=== PATIENT | female | born 1980 | race Caucasian/White ===

== ENCOUNTER 2016-10-26 14:14 | Emergency (ER) | payer MEDICARE, OTHER, MEDICAID ==
[~2016-10-26] VITALS: Ht 160 cm; Wt 130.0 kg
[~2016-10-26 14:14] MED LIST: ALBU0.08 NEB; ASPI81TA81 PO; ATOR40TA16 PO; CALC0.25 PO; CALC1TAB26 PO; CHLO5CAP37 PO; DICY20TA10 PO; DIPH2.5T60 PO; FERR325T PO; FURO1TAB60 PO; HYDR5TAB64 PO; IPRAAER INH; JUNE1.5T PO; LACTTAB8 PO; LIOT5TAB3 PO; LYRI50CA PO; MELA5CAP2 PO; METR500T10 PO; MULT1CHW70 PO; OMEP20TA PO; PERC5TAB12 PO; POTA-163 PO; SODI650T PO; SYMB160A INH; TIRO137C PO; TRAM50TA PO; ULOR80TA2 PO; VENTAER INH; VITA500030 CHEW; [UNRECOGNIZED DRUG - CODE] SQ
[2016-10-26 14:17] VITALS: BP 162/81; PULSE 97; RESP 24; TEMP 98.1; O2SAT 100
--- NOTE | 2016-10-26 14:24 | PD ---
Physical Exam Time Seen by Provider: 14:21 Narrative 36 y/o female presents for evaluation of a facial rash which started today. Concerned about allergic reaction to flagyl which started 2 days ago to treat bacterial vaginosis. Now concerned she may have a UTI as well. Vital signs reviewed. Seen at triage desk. Awaiting bed placement. Data Data Last Documented VS Vital Signs Date Time Temp Pulse Resp B/P Pulse Ox O2 Delivery O2 Flow Rate FiO2 10/26/16 14:17 98.1 97 24 162/81 100 Room Air [facility] Medical Record Reviewed: Yes Supervised Visit with ANUP: Govind Montejo October 26, 2016 14:24
[2016-10-26] MEDS ORDERED: CLIN1CAP6 PO (14:46)
--- NOTE | 2016-10-26 14:48 | PD ---
HPI Chief Complaint: Allergic/Adverse Reaction Time Seen by Provider: 14:43 Travel History International Travel<30 days: No Contact w/Intl Traveler<30days: No Traveled to known affect area: No History of Present Illness HPI 36-year-old female presents to the emergency Department with complaint of a facial rash that she was told she had today. 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 Patient's caretakers at the bedside and reports seeing facial flushing to bilateral cheeks which subsided prior to arrival to the ER. She started taking Flagyl 3 days ago and thinks she was having allergic reaction to the medication. She did call her primary care provider and her mom and they both told her come to the emergency department. Denies airway edema, stridor, wheezing, cough. Denies shortness of breath or difficulty breathing. Denies fever, vomiting. Allergies to Norvasc, sodium chloride, Vasotec. Has no other medical complaints. No other modifying factors or associated signs and symptoms. PFSH Past Medical History Asthma: Yes Autoimmune Disease: No Anxiety: Yes (Separation anxiety) Cancer: No Cardiovascular Problems: Yes (Heart murmur) Diabetes: Yes Endocrine: Yes Gastrointestinal Disorders: Yes (HX ULCER, RECTAL BLEEDING, REFLUX) GERD: Yes Genitourinary: Yes Hepatitis: No Hiatal Hernia: No Hypertension: Yes Immune Disorder: No Musculoskeletal: Yes Neurologic: No Psychiatric: Yes (auditory hallucination times 1 episode) Reproductive: No Respiratory: Yes Thyroid Disease: Yes ?: Not Past Surgical History Abdominal Surgery: Yes (reji Sy, ) Appendectomy: Yes Cholecystectomy: Yes Eye Surgery: Yes (eye removal,) Oral Surgery: Yes (T&A) Tonsillectomy: Yes Other Surgery: Yes (EXTRA FINGERS AND TOES REMOVED AT ) Social History Alcohol Use: No Tobacco Use: No Substance Use: No Allergies-Medications (Allergen,Severity, Reaction): Coded Allergies: Norvasc (Verified Allergy, Severe, SWELLING, 10/26/16) Sodium Chloride (Verified Allergy, Severe, EDEMA, 10/26/16) "CANT HAVE LARGE AMOUNTS OF IT" Vasotec (Verified Allergy, Severe, SWELLING, 10/26/16) Reported Meds & Prescriptions Reported Meds & Active Scripts Active Clindamycin (Clindamycin HCl) 300 Mg Cap 300 Mg PO BID 7 Days Metronidazole 500 Mg Tab 500 Mg PO BID Calcitriol 0.25 Mcg Cap 0.25 Mcg PO DAILY Sodium Bicarbonate 650 Mg Tab 650 Mg PO BIDPC Tramadol (Tramadol HCl) 50 Mg Tab 50 Mg PO HS PRN Liothyronine (Liothyronine Sodium) 5 Mcg Tab 10 Mcg PO DAILY Uloric (Febuxostat) 80 Mg Tab 1 Tab PO HS Atorvastatin (Atorvastatin Calcium) 40 Mg Tab 40 Mg PO HS Potassium Chloride ER (Potassium Chloride) 20 Meq Tab 20 Meq PO DAILY Dicyclomine (Dicyclomine HCl) 20 Mg Tab 20 Mg PO TID PRN Omeprazole 20 Mg Tab 20 Mg PO BID Lasix (Furosemide) 40 Mg Tab 40 Mg PO BID Ventolin Hfa 18 GM Inh (Albuterol Sulfate) 90 Mcg/Act Aer 2 Puff INH Q4-6H PRN Albuterol Neb (Albuterol Sulfate) 2.5 Mg/3 Ml Neb 2.5 Mg NEB Q4HR NEB PRN Combivent Respimat Inh (Ipratropium-Albuterol Inh) 20-100 Intermediate/Act Aero 2 Puff INH BID Lyrica (Pregabalin) 50 Mg Cap 50 Mg PO DAILY Reported Procrit Inj (Epoetin Cruzito) Unknown Strength Inj Unknown Dose SQ 3XWEEK Hydrocortisone 5 Mg Tab 5 Mg PO DIRECTED 10 mg AM, 5 mg noon, 2.5 mg dinner Percocet (Oxycodone-Acetaminophen) 5-325 mg Tab 1 Tab PO Q4H PRN Chlordiazepoxide-Clidinium 5-2.5 Mg Cap 1 Cap PO TID Tirosint (Levothyroxine Sodium) 137 Mcg Cap 137 Mcg PO DAILY Diphenatol 2.5-0.025 mg (Diphenoxylate W/ Atropine) 1 Tab Tab 1 Tab PO DAILY PRN Junel Fe 1.5/30 (Norethindrone-Ethinyl Estradiol-Fe) 1.5-30 Mg-Mcg Tab 1 Tab PO DAILY Symbicort Inh (Budesonide/Formoterol Fumarate) 160-4.5 Mcg/Act Aero 2 Puff INH TID Melatonin 5 Mg Cap 1 Cap PO HS Multivitamin Adult (Multiple Vitamins W/ Minerals) 1 Chw Chw 1 Tab PO DAILY Vitamin D3 (Cholecalciferol) 5,000 Unit Chew 5,000 Units CHEW DAILY Calcium 600/Vitamin D3 (Calcium Carbonate-Cholecalciferol) 600-800 Mg-Unit Tab 1 Tab PO DAILY Lactobacillus Acidophilus 1 Tab Tab 1 Tab PO TIDAC Ferrous Sulfate 325 Mg Tab 325 Mg PO TID Aspir-81 (Aspirin) 81 Mg Tabdr 1 Tab PO DAILY Review of Systems Except as stated in HPI: all other systems reviewed are Neg Physical Exam Narrative GENERAL: Well-nourished, well-developed female patient, in no acute distress SKIN: Warm and dry. No facial rash noted. HEAD: Atraumatic. Normocephalic. EYES: Bilateral eye prosthetics. ENT: Mucosa pink and moist. No erythema or exudates. No uvular edema. No uvular , palatal, or tonsillar deviation. Airway patent. EARS: Bilateral pinnae and external canals appear within normal limits. Bilateral tympanic membranes without erythema, dullness or perforation. NECK: Trachea midline. No lymphadenopathy. CARDIOVASCULAR: Regular rate and rhythm. No murmur appreciated. RESPIRATORY: No accessory muscle use. Clear to auscultation. Breath sounds equal bilaterally. GASTROINTESTINAL: Abdomen soft, non-tender, nondistended. Hepatic and splenic margins not palpable. Bowel sounds are active 4 quadrants. MUSCULOSKELETAL: No obvious deformities. No clubbing. No cyanosis. No edema. NEUROLOGICAL: Awake and alert. Oriented 3. No obvious cranial nerve deficits. Motor grossly within normal limits. Normal speech. PSYCHIATRIC: Appropriate mood and affect; insight and judgment normal. Data Data Last Documented VS Vital Signs Date Time Temp Pulse Resp B/P Pulse Ox O2 Delivery O2 Flow Rate FiO2 10/26/16 14:17 98.1 97 24 162/81 100 Room Air MDM Medical Decision Making Medical Screen Exam Complete: Yes Emergency Medical Condition: Yes Medical Record Reviewed: Yes Differential Diagnosis Medical clearance, facial flushing, hives Narrative Course 28-year-old female with unremarkable physical exam. No signs of hives or allergic reaction noted. Patient concerned she was maybe having an allergic reaction to Flagyl that she has been taking for 3 days for treatment of bacterial vaginosis. Patient is requesting medication change. Informed patient to stop taking Flagyl. Clindamycin prescribed for home. Patient verbalizes understanding and agreement with treatment plan. Patient is medically cleared and stable for discharge. Discussed reasons to return to the emergency department. Instructed patient to follow up with primary care provider. Patient agrees with treatment plan. The patients vital signs are stable and the patient is stable for outpatient follow-up and treatment. Patient discharged home, stable and in no acute distress. Diagnosis Primary Impression: Medication course changed Referrals: Primary Care Physician Patient Instructions: Bacterial Vaginosis (ED), General Instructions Additional Instructions: Stop Flagyl Start clindamycin and take as prescribed Follow-up with primary care provider Return to the emergency department immediately with worsening of symptoms Med/Other Pt SpecificInfo: Prescription(s) given Scripts Clindamycin 300 Mg Kun507 Mg PO BID 7 Days Ref 0 Prov:Layne Reynaga 10/26/16 Disposition: 01 DISCHARGE HOME Condition: Stable Layne Reynaga October 26, 2016 14:48
[2016-11-05] MEDS ORDERED: NOVOLOGMXP SQ (11:06)
[2016-11-05] MEDS ORDERED: CLON0.5T PO (11:10)
[2016-11-05] MEDS ORDERED: PROC10003 SQ (11:12)
[2016-11-13] MEDS ORDERED: NOVOINJ2 SQ (09:24)
[2016-12-03] MEDS ORDERED: MELA5TAB15 PO (09:56)
== END 2016-10-26 15:05 | disposition home or self-care (01) ==
LOC: NEPD 14:14
DX: N76.0 Acute vaginitis (principal); B96.89 Other specified bacterial agents as the cause of diseases classified elsewhere; I10 Essential (primary) hypertension; E11.9 Type 2 diabetes mellitus without complications; K21.9 Gastro-esophageal reflux disease without esophagitis
CPT/HCPCS: 99283